=== PATIENT | female | born 1940 | race Caucasian/White ===

== ENCOUNTER → 2017-05-19 | Outpatient (CLI) | payer MEDICARE, OTHER ==
[2017-05-19 11:47] LABS: URINE BILIRUBIN - DIPSTICK NEGATIVE (NEG); URINE BLOOD NEGATIVE (NEG)
[2017-05-19 12:04] LABS: BUN 38 mg/dL (7-18)
[2017-05-19 12:06] LABS: GFR (ESTIMATED) 19 ML/MIN (59-)
[2017-05-19 12:16] LABS: URINE SQUAMOUS CELLS OCC #/hpf (0-5)
== END ==
LOC: LAB 10:43
PROVIDERS: Internal Medicine Nephrology
DX: N25.81 Secondary hyperparathyroidism of renal origin (principal); N18.4 Chronic kidney disease, stage 4 (severe); Z86.39 Personal history of other endocrine, nutritional and metabolic disease